=== PATIENT | male | born 1980 | race Caucasian/White ===

== ENCOUNTER 2018-12-12 01:10 | Inpatient (IN) | payer OTHER ==
[~2018-12-12] VITALS: Ht 177.8 cm; Wt 93.0 kg
[~2018-12-12 01:10] MED LIST: ACETAMINOPHEN-1 EAC1 PO; ACETAMINOPHEN325 M1; CELEBREX PO; CIPRO500 M1 PO; FLAGYL500 MG PO; GABAPENTIN 100100 MG PO; HYDROCODONE-AP1 EAC6 PO; HYDROCODONE-APA1 TA1 PO; IBUPROFEN 800800 M1 PO; LIDOCAINE VISC100 M1 SWISH&SPIT; LORTAB 5 MG/5001 TA1 PO; NEXIUM 40 MG CA40 M1 PO; NOHOMEMEDICATIONS; NORCO 5-325 TA1 EACH PO; PENICILLIN V P500 MG PO; PERCOCET 5-3251 EACH PO; PHENERGAN 25 MG25 M1 PO; PROMETHAZINE HC25 MG RECTAL; PROMS25 WY RECTAL; RANITIDINE 150150 M1 PO; ZOFRAN ODT4 MG DISSOLVE; ZOFRAN ODT4 MG PO
[2018-12-12 01:27] VITALS: BP 149/98
[2018-12-12 01:35] LABS: ABSOLUTE EOSINOPHILS 0.2 thou/uL (0.0-0.7); ABSOLUTE LYMPHOCYTES 3.4 thou/uL (0.8-5.3); ABSOLUTE NEUTROPHILS 6.7 thou/uL (1.6-8.1); BASOPHILS 0.4 %; EOSINOPHILS 2.1 %; HEMATOCRIT 42.7 % (42.0-52.0); HEMOGLOBIN 14.5 gm/dL (14.0-18.0); LYMPHOCYTES 29.8 %; MCH 30.1 pg (26.0-34.0); MCV 88.5 fL (80.0-100.0); MONOCYTES 8.7 %; MPV 6.5 fl. (7.2-11.1); NUCLEATED RBCS 0 /100WBC; PLATELET COUNT* 332 thou/uL (150-400); RBC 4.82 mil/uL (4.50-6.00); WBC 11.3 thou/uL (4.0-11.0)
[2018-12-12 01:44] LABS: CALCIUM 8.7 mg/dL (8.5-10.1); POTASSIUM 3.4 mmol/L (3.5-5.1)
[2018-12-12 01:48] LABS: ALBUMIN 3.2 g/dL (3.4-5.0); TOTAL BILIRUBIN 0.5 mg/dL (<0.1-1.0); TOTAL PROTEIN 7.1 g/dL (6.4-8.2)
--- NOTE | 2018-12-12 04:00 | NUR ---
ALL MEDICATIONS GIVEN. DOSAGES CONFIRMED WITH MD. UNABLE TO SCAN
[2018-12-12 04:11] VITALS: BP 129/72
[2018-12-12 04:20] VITALS: BP 138/87
--- NOTE | 2018-12-12 06:43 | NUR ---
PATIENT ARRIVED ON FLOOR FROM ER ABOUT 0415. PATIENT ADMISSION HISTORY AND ASSESSMENT WAS COMPLETED CHARTED. PICTURE OF LEFT HAND WAS PLACED ON CHART. WILL CONTINUE TO MONITOR.
[2018-12-12 16:26] VITALS: BP 144/95
--- NOTE | 2018-12-12 16:57 | NUR ---
ASSESSMENT COMPLETE. PT ALERT AND ORIENTED X4. PT AGITIATED WITH HOSPITAL POLICY OF NO SMOKING. IV ABX AND PAIN MEDICATION GIVEN ORDERED. PT ELEVATE LEFT HAND WITH PILLOWS, HEAT APPLIED NEEDED. PT SLEPT MOST OF THE AFTERNOON. TOLERATING MEALS. ORTHO AND INFECTIOUS DISEASE CONSULTS. PT IS UP AD WILL. SEE ASSESSMENT AND VITALS FOR OTHER DETAILS. CALL LIGHT WITHIN REACH. WILL CONTINUE PLAN OF CARE
[2018-12-12 21:22] VITALS: BP 144/92
--- NOTE | 2018-12-13 06:18 | NUR ---
PATIENT SLEPT MOST OF THE NIGHT. PATIENT WAS GIVEN TORADOL TWICE FOR PAIN. DR. LEONARDO CHANGED PATIENTS ANTIBIOTICS AND UNASYN WAS GIVEN ORDERED. PATIENT HOPING TO GO HOME TODAY. WILL CONTINUE TO MONITOR.
[2018-12-13 08:30] VITALS: BP 129/87
[2018-12-13] MEDS ORDERED: AUGMENTIN 875-1 EACH PO (11:30)
[2018-12-13] MEDS ORDERED: TYLENOL EXTRA500 MG PO (11:31)
[2018-12-13] MEDS ORDERED: IBUPROFEN 800800 M1 PO (11:35)
[2018-12-13 11:39] VITALS: BP 129/87
--- NOTE | 2018-12-13 12:54 | NUR ---
PT.TO BE DISHCHARGED TODAY. MET WITH HIM. HE IS INDEPENDENT. LIVES WITH HIS MOM. SHE WILL BE THE ONE COMING TO PICK HIM UP. HE IS UNEMPLOYED AND HAS NO INSURANCE. NO USE OF DME OR HX OF HOME HEALTH. GAVE AND DISCUSSED PACKET FOR THE UNINSURED. HE WAS FAMILIAR WITH [employer] [facility] DISCOUNT CARD AND [employer] ON PHONE. JOHANNA HAS HIS AUGMENT[employer] PRESCRIPTION FOR $20, SARABJIT HAS IT FOR $15, HE SAID HE COULD AFFORD THIS. HE EXPRESSED NO OTHER NEEDS AT THIS TIME.
--- NOTE | 2018-12-13 14:30 | NUR ---
PATIENT DISCHARGED TO HOME. DISCHARGE PAPERS REVIEWED AND SIGNED. PRESCRIPTIONS AND INFORMATION SHEETS GIVEN. IV REMOVED. PATIENT DENIES ANY FURTHER NEEDS. PATIENT LEFT AMBULATORY TO EXIT.
== END 2018-12-13 14:30 | disposition home or self-care (01) | DRG 603 ==
LOC: M.ERS 01:10 → M.3W 03:06 → M.TBA-ER 03:06 → M.3W 04:15
PROVIDERS: Emergency Medicine; ADMIT Internal Medicine
DX: L03.012 Cellulitis of left finger (principal); K21.9 Gastro-esophageal reflux disease without esophagitis; I10 Essential (primary) hypertension; F12.90 Cannabis use, unspecified, uncomplicated; S61.258A Open bite of other finger without damage to nail, initial encounter; E11.9 Type 2 diabetes mellitus without complications; F17.210 Nicotine dependence, cigarettes, uncomplicated; Y92.89 Other specified places as the place of occurrence of the external cause; Y99.8 Other external cause status; Y93.89 Activity, other specified; W55.01XA Bitten by cat, initial encounter; Z79.1 Long term (current) use of non-steroidal anti-inflammatories (NSAID); Z79.899 Other long term (current) drug therapy; Z88.6 Allergy status to analgesic agent; Z82.49 Family history of ischemic heart disease and other diseases of the circulatory system

== ENCOUNTER 2019-12-18 00:11 | Emergency (ER) | payer OTHER ==
[~2019-12-18] VITALS: Ht 180.3 cm; Wt 81.7 kg
[~2019-12-18 00:11] MED LIST changes: +AUGMENTIN 875-1 EACH PO; +TYLENOL EXTRA500 MG PO
[2019-12-18 00:20] VITALS: BP 134/104
[2019-12-18] MEDS ORDERED: TRAZODONE (00:23)
[2019-12-18] MEDS ORDERED: TRAMADOL 50 MG50 MG PO (00:42)
[2019-12-18] MEDS ORDERED: AMOXICILLIN 50500 M1 PO (00:42)
[2019-12-18] MEDS ORDERED: LORCET 5-325 M1 EACH PO (00:42)
[2019-12-18] MEDS ORDERED: PERIDEX 0.12%473 M1 SWISH&SPIT (00:42)
== END 2019-12-18 00:55 | disposition home or self-care (01) ==
LOC: M.ERS 00:11
DX: K02.9 Dental caries, unspecified (principal); K05.10 Chronic gingivitis, plaque induced; I10 Essential (primary) hypertension; K21.9 Gastro-esophageal reflux disease without esophagitis; Z88.8 Allergy status to other drugs, medicaments and biological substances

== ENCOUNTER 2020-04-15 13:13 | Emergency (ER) | payer OTHER ==
[~2020-04-15] VITALS: Ht 180.3 cm; Wt 81.7 kg
[~2020-04-15 13:13] MED LIST changes: +AMOXICILLIN 50500 M1 PO; +LORCET 5-325 M1 EACH PO; +PERIDEX 0.12%473 M1 SWISH&SPIT; +TRAMADOL 50 MG50 MG PO; +TRAZODONE
[2020-04-15] MEDS ORDERED: PREDNISONE 10 M10 MG PO (14:13)
[2020-04-15] MEDS ORDERED: FLEXERIL PO (14:13)
[2020-04-15 14:27] VITALS: BP 142/98
== END 2020-04-15 14:27 | disposition home or self-care (01) ==
LOC: M.ERS 13:13
DX: J98.8 Other specified respiratory disorders (principal); Z20.828 Contact with and (suspected) exposure to other viral communicable diseases; M79.602 Pain in left arm; M79.601 Pain in right arm; I10 Essential (primary) hypertension; K21.9 Gastro-esophageal reflux disease without esophagitis; F17.200 Nicotine dependence, unspecified, uncomplicated; Z88.6 Allergy status to analgesic agent; Z88.8 Allergy status to other drugs, medicaments and biological substances

== ENCOUNTER 2020-10-06 12:56 | Emergency (ER) | payer OTHER ==
[~2020-10-06] VITALS: Ht 177.8 cm; Wt 72.6 kg
--- NOTE | ~2020-10-06 | EKG ---
[place] [address] ELECTROCARDIOGRAM REPORT Name: TITO CHAN Room: [facility]#: [id number] Admission: 10/06/20 Attend Phys: Discharge: Date of : 84 Date of Service: 10/06/20 1354 Report #: [id number] THIS REPORT FOR: //name// [facility] ED Test Date: 2020-10-06 Test Time: 13:54:23 Pat Name: TITO CHAN Department: Room: Gender: Employment Director: : 1980 Requested By: Robert Cole Order Number: [id number] MD: Measurements Intervals [place] Rate: 82 P: -9 WV: 129 QRS: -6 QRSD: 87 T: 34 QT: 368 QTc: 430 Interpretive Statements Sinus rhythm Compared to ECG 06/03/2008 09:39:15 No significant changes [email or web address] By: 135 135 Epiphany Epiphany, /EPI
[~2020-10-06 12:56] MED LIST changes: +FLEXERIL PO; +PREDNISONE 10 M10 MG PO
[2020-10-06] MEDS ORDERED: AMBIEN 10 MG TA10 MG (13:15)
[2020-10-06 13:52] LABS: ABSOLUTE EOSINOPHILS 0.3 thou/uL (0.0-0.7); ABSOLUTE MONOCYTES 0.8 thou/uL (0.0-1.2); ABSOLUTE NEUTROPHILS 6.9 thou/uL (1.6-8.1); BASOPHILS 0.2 %; EOSINOPHILS 2.5 %; HEMATOCRIT 45.1 % (42.0-52.0); HEMOGLOBIN 15.6 gm/dL (14.0-18.0); LYMPHOCYTES 27.1 %; MCH 30.6 pg (26.0-34.0); MCHC 34.6 g/dL (28.0-37.0); MCV 88.3 fL (80.0-100.0); MONOCYTES 7.4 %; MPV 6.4 fl. (7.2-11.1); NUCLEATED RBCS 0 /100WBC; PLATELET COUNT* 338 thou/uL (150-400); POLYS 62.8 %; RDW-CV 12.9 % (10.5-14.5)
[2020-10-06 13:59] LABS: CALCIUM 8.3 mg/dL (8.5-10.1); POTASSIUM 3.6 mmol/L (3.5-5.1)
[2020-10-06 14:03] LABS: ALBUMIN 3.2 g/dL (3.4-5.0); TOTAL BILIRUBIN 0.5 mg/dL (<0.1-1.0); TOTAL PROTEIN 7.5 g/dL (6.4-8.2)
[2020-10-06 16:18] LABS: URINE BILIRUBIN NEGATIVE (Negative); URINE BLOOD NEGATIVE (Negative); URINE CLARITY CLEAR; URINE COLOR YELLOW; URINE GLUCOSE-RANDOM NEGATIVE (Negative); URINE KETONES NEGATIVE (Negative); URINE LEUKOCYTES-REFLEX NEGATIVE (Negative); URINE NITRITE-REFLEX NEGATIVE (Negative); URINE PROTEIN NEGATIVE (Negative); URINE UROBILINOGEN 0.2 E.U./dl (0.2-1.0)
[2020-10-06 17:51] VITALS: BP 132/54
== END 2020-10-06 17:55 | disposition home or self-care (01) ==
LOC: M.ERS 12:56
PROVIDERS: Emergency Medicine Emergency Medical Services
DX: S30.811A Abrasion of abdominal wall, initial encounter (principal); S80.811A Abrasion, right lower leg, initial encounter; I10 Essential (primary) hypertension; K21.9 Gastro-esophageal reflux disease without esophagitis; Z88.6 Allergy status to analgesic agent; Z88.8 Allergy status to other drugs, medicaments and biological substances; X50.9XXA Other and unspecified overexertion or strenuous movements or postures, initial encounter; Y93.89 Activity, other specified; Y92.89 Other specified places as the place of occurrence of the external cause; Y99.8 Other external cause status

== ENCOUNTER 2020-12-21 13:00 | Emergency (ER) | payer OTHER ==
[~2020-12-21] VITALS: Ht 180.3 cm; Wt 83.9 kg
[~2020-12-21 13:00] MED LIST changes: +AMBIEN 10 MG TA10 MG
[2020-12-21] MEDS ORDERED: TRILEPTAL150 MG PO (13:21)
[2020-12-21 13:51] VITALS: BP 151/109
[2020-12-21] MEDS ORDERED: ONDANSETRON HCL4 M2 PO (17:33)
[2020-12-21] MEDS ORDERED: PROAIR HFA8.5 GM INH (17:33)
[2020-12-21] MEDS ORDERED: APAP W/CODEINE1 TA2 PO (17:33)
[2020-12-21] MEDS ORDERED: ZOFRAN ODT4 MG PO (23:51)
[2020-12-21] MEDS ORDERED: ACETAMINOPHEN-1 EAC2 PO (23:51)
== END 2020-12-21 13:53 | disposition left against medical advice (07) ==
LOC: M.ERS 13:00
DX: U07.1 COVID-19 (principal); Z53.21 Procedure and treatment not carried out due to patient leaving prior to being seen by health care provider

== ENCOUNTER 2020-12-21 17:19 | Emergency (ER) | payer OTHER ==
[~2020-12-21] VITALS: Ht 180.3 cm; Wt 83.9 kg
[~2020-12-21 17:19] MED LIST changes: +TRILEPTAL150 MG PO
[2020-12-21 17:27] VITALS: BP 154/109
[2020-12-21] MEDS ORDERED: ONDANSETRON HCL4 M2 PO (17:33)
[2020-12-21] MEDS ORDERED: PROAIR HFA8.5 GM INH (17:33)
[2020-12-21] MEDS ORDERED: APAP W/CODEINE1 TA2 PO (17:33)
[2020-12-21] MEDS ORDERED: ZOFRAN ODT4 MG PO (23:51)
[2020-12-21] MEDS ORDERED: ACETAMINOPHEN-1 EAC2 PO (23:51)
== END 2020-12-22 00:20 | disposition home or self-care (01) ==
LOC: M.ERS 17:19
DX: U07.1 COVID-19 (principal); I10 Essential (primary) hypertension; K21.9 Gastro-esophageal reflux disease without esophagitis; Z88.6 Allergy status to analgesic agent

== ENCOUNTER 2020-12-21 22:46 | Emergency (ER) | payer OTHER ==
[~2020-12-21] VITALS: Ht 180.3 cm; Wt 83.9 kg
[~2020-12-21 22:46] MED LIST changes: +APAP W/CODEINE1 TA2 PO; +ONDANSETRON HCL4 M2 PO; +PROAIR HFA8.5 GM INH
[2020-12-21] MEDS ORDERED: ACETAMINOPHEN-1 EAC2 PO (23:51)
[2020-12-21] MEDS ORDERED: ZOFRAN ODT4 MG PO (23:51)
[2020-12-22 00:20] VITALS: BP 158/79
== END 2020-12-22 00:20 | disposition home or self-care (01) ==
LOC: M.ERS 22:46
DX: U07.1 COVID-19 (principal); I10 Essential (primary) hypertension; K21.9 Gastro-esophageal reflux disease without esophagitis; F17.200 Nicotine dependence, unspecified, uncomplicated; Z88.6 Allergy status to analgesic agent; Z79.899 Other long term (current) drug therapy

== ENCOUNTER 2020-12-22 19:03 | Emergency (ER) | payer OTHER ==
[~2020-12-22] VITALS: Ht 180.3 cm; Wt 83.9 kg
[~2020-12-22 19:03] MED LIST changes: +ACETAMINOPHEN-1 EAC2 PO
[2020-12-22 19:05] VITALS: BP 131/96
== END 2020-12-22 19:55 | disposition home or self-care (01) ==
LOC: M.ERS 19:03
DX: U07.1 COVID-19 (principal); F41.9 Anxiety disorder, unspecified; I10 Essential (primary) hypertension; K21.9 Gastro-esophageal reflux disease without esophagitis; Z88.6 Allergy status to analgesic agent